=== PATIENT | female | born 1985 | race American Indian/Alaskan Native ===

== ENCOUNTER 2018-09-25 19:56 | Emergency (ER) | payer MEDICAID ==
[2018-09-25 20:08] VITALS: BP 139/97
--- NOTE | 2018-09-25 23:03 | Emergency Department Report ---
ED Female HPI - General Chief complaint: Skin/Abscess/Foreign Body Stated complaint: ABCESS BETWEEN LEGS Time Seen by Provider: 09/25/18 22:36 Source: patient Mode of arrival: Ambulatory Limitations: No Limitations - History of Present Illness Initial comments: Pt is a 32 yo female who presents to the ED with c/o a "knot" on the right labia that began two days ago. She denies any drainage or fever. The patient states she has had it once before about 3 years ago and had an I&D at that time. She states she has also had white vaginal discharge that began 3-4 days ago she states she used OTC monistat with a little relief. she has associated frequency. she denies any dysuria. she denies any PMHx. LNMP: september 09. no allergies to meds. - Related Data Previous Rx's Medication Instructions Recorded Last Taken Type Doxycycline Hyclate [Doxycycline 100 mg PO BID 14 Days #28 tab 09/26/18 Unknown Rx Hyclate TAB] Allergies Allergy/AdvReac Type Severity Reaction Status Date / Time No Known Allergies Allergy Verified 09/25/18 20:34 ED Review of Systems ROS: Stated complaint: ABCESS BETWEEN LEGS Other details as noted in HPI Comment: All other systems reviewed and negative ED Past Medical Hx - Past Medical History Previous Medical History?: No - Surgical History Past Surgical History?: No - Social History Smoking Status: Never Smoker Substance Use Type: None - Medications Home Medications: Home Medications Medication Instructions Recorded Confirmed Last Taken Type Doxycycline Hyclate [Doxycycline 100 mg PO BID 14 Days #28 tab 09/26/18 Unknown Rx Hyclate TAB] ED Physical Exam - General Limitations: No Limitations General appearance: alert, in no apparent distress - Head Head exam: Present: atraumatic, normocephalic - Eye Eye exam: Present: normal appearance - ENT ENT exam: Present: mucous membranes moist - Respiratory Respiratory exam: Present: normal lung sounds bilaterally. Absent: respiratory distress, wheezes, rales, rhonchi, stridor, chest wall tenderness, accessory muscle use, decreased breath sounds, prolonged expiratory - Cardiovascular Cardiovascular Exam: Present: regular rate, normal rhythm, normal heart sounds. Absent: systolic murmur, diastolic murmur, rubs, gallop - GI/Abdominal GI/Abdominal exam: Present: soft, normal bowel sounds. Absent: distended, tenderness, guarding, rebound, rigid - External exam: Present: swelling (small 1 cm area of induration to the right bartholins gland, no fluctuance, no drainage) Speculum exam: Present: vaginal discharge (small amount white discharge), cervical discharge (small amount white discharge). Absent: vaginal bleeding, foreign body, tissue, laceration Bi-manual exam: Present: cervical motion tendernes (moderate). Absent: adnexal tenderness, adnexal mass, uterine enlargement, uterine tenderness - Back Exam Back exam: Absent: CVA tenderness (R), CVA tenderness (L) - Neurological Exam Neurological exam: Present: alert, oriented X3 - Psychiatric Psychiatric exam: Present: normal affect, normal mood - Skin Skin exam: Present: warm, dry, intact ED Course Vital Signs 09/25/18 09/25/18 20:01 20:35 Temperature 98.5 F 98.5 F Pulse Rate 100 H 104 H Respiratory 18 16 Rate Blood Pressure 139/97 Blood Pressure 139/97 [Left] O2 Sat by Pulse 98 98 Oximetry ED Medical Decision Making - Medical Decision Making pt has a 1 cm area of induration to the right labia consistent with a bartholins cyst, not fluctuant at this time, is still very hard, no I&D at this time, discussed with pt that she would need to see an [facility] [facility]PERATIONS MANAGER in the next 2-3 days for reevaluation. pt has discharge and moderate CMT on exam, no N/V, vitals are normal. pt swabbed for G/C and given azithromycin and ceftriaxone. wet prep shows evidence of BV and trichomonas. pt given flagyl, discussed to not drink ETOH while taking and take as prescribed. pt given tx for PID with azithromycin, ceftriaxone and 14 day course of flagyl. have partner tested and treated as well. if concerned for any other STDs would need to be seen by health department, [facility]ATIONS MANAGER or primary care doctor. return to the emergency room for any new or worsening symptoms. Critical care attestation.: If time is entered above; I have spent that time in minutes in the direct care of this critically ill patient, excluding procedure time. ED Disposition Clinical Impression: Bartholin's cyst, Vaginal discharge, Bacterial vaginosis, Trichomonas infection, PID (acute pelvic inflammatory disease), Screen for STD (sexually transmitted disease) Disposition: TO HOME OR SELFCARE Is pt being admited?: No Does the pt Need Aspirin: No Condition: Stable Instructions: Pelvic Inflammatory Disease (ED), Bacterial Vaginosis (ED), Trichomoniasis (ED), Bartholin Cyst (ED) Additional Instructions: Please take all medication as prescribed. do not drink ETOH while taking. follow up with an stain maker and primary care doctor in the next 2-3 days. return to the emergency room immediately for any new or worsening symptoms as discussed. abstain from sexual intercourse until completion of medication. have partner tested and treated. if concerned for any other STDs please be seen at [facility] [facility] [facility]ATIONS [facility]NAGER, health department, or primary care. Prescriptions: Doxycycline Hyclate [Doxycycline Hyclate TAB] 100 mg PO BID 14 Days #28 tab Referrals: PRIMARY CAREMD [Primary Care Provider] - 2-3 Days [facility] [Provider Group] - 2-3 Days RYAN HORTA MD [Staff Physician] - 2-3 Days Forms: STI Treatment and Prevention Time of Disposition: 00:59 Print Language: DOMINICAN
[2018-09-25] MEDS ORDERED: XYLOCAINE 1% MPF 5 mL INFILTRATI ONE (23:31)
[2018-09-25] MEDS ORDERED: ZITHROMAX PO ONE (23:31)
[2018-09-25] MEDS ORDERED: ROCEPHIN IM ONE (23:31)
[2018-09-25 23:57] LABS: Bacteria,Urine 1+ /HPF (Negative); Bilirubin,Urine NEG (Negative); Blood,Urine SM (Negative); Color,Urine Yellow (Yellow); Mucus,Urine FEW /HPF; Protein,Urine <15 mg/dL mg/dL (Negative)
[2018-09-26 00:01] LABS: HCG Qualitative,Urine Negative (Negative)
== END 2018-09-26 01:14 | disposition home or self-care (01) ==
LOC: ED 19:56
DX: N73.9 Female pelvic inflammatory disease, unspecified (principal); A59.01 Trichomonal vulvovaginitis; N75.0 Cyst of Bartholin's gland; N76.0 Acute vaginitis; B96.89 Other specified bacterial agents as the cause of diseases classified elsewhere; Z11.3 Encounter for screening for infections with a predominantly sexual mode of transmission
CPT/HCPCS: 81001; 81025; 87210; 87591; 96372; 99284; J0696

== ENCOUNTER 2018-11-30 13:45 | Emergency (ER) | payer MEDICAID ==
--- NOTE | 2018-11-30 13:59 | Event Note ---
ED Screening Note Date of service: 11/30/18 Time: 13:55 ED Screening Note: This is a 33 y.o. F. that presents to the ER with sharp flank pain x 2-3 days. Denies dysuria, hematuria, vaginal discharge, urinary frequency, urgency. Patient states she went to her PCP at [facility] and given antibiotics and other meds for presumed kidney stones. This initial assessment/diagnostic orders/clinical plan/treatment(s) is/are subject to change based on patients health status, clinical progression and re- assessment by fellow clinical providers in the ED. Further treatment and workup at subsequent clinical providers discretion. Patient/guardian urged not to elope from the ED as their condition may be serious if not clinically assessed and managed. Initial orders include: Labs and CT of abdomen and pelvis.
[2018-11-30 14:36] LABS: Basophils % (Auto) 0.4 % (0.0-1.8); Eosinophils # (Auto) 0.1 K/mm3 (0.0-0.4); Eosinophils % (Auto) 0.9 % (0.0-4.3); Hematocrit 36.6 % (30.3-42.9); Hemoglobin 11.6 gm/dl (10.1-14.3); Lymphocytes # (Auto) 2.6 K/mm3 (1.2-5.4); Lymphocytes % (Auto) 42.1 % (13.4-35.0); Mean Corpuscular HGB Conc 32 % (30-34); Mean Corpuscular Volume 71 fl (79-97); Monocytes # (Auto) 0.3 K/mm3 (0.0-0.8); Monocytes % (Auto) 5.4 % (0.0-7.3); Platelet Count 247 K/mm3 (140-440); Red Blood Count 5.16 M/mm3 (3.65-5.03); Red Cell Distribution Width 15.8 % (13.2-15.2)
[2018-11-30 14:59] LABS: Alanine Aminotransferase 12 units/L (7-56); Albumin 3.8 g/dL (3.9-5); BUN/Creatinine Ratio 14; Blood Urea Nitrogen 10 mg/dL (7-17); Calcium 8.8 mg/dL (8.4-10.2); Hemolysis Index 6
--- NOTE | 2018-11-30 15:02 | Emergency Department Report ---
HPI - General Chief Complaint: Urogenital-Female Time Seen by Provider: 11/30/18 13:55 - HPI HPI: 33-year-old female presents to the emergency department with complaint of some left lower quadrant abdominal pain and some left lower to mid back pain for the past 2 days. Currently she does not have any abdominal or pelvic pain but she does continue to have the back pain. It worsens when she is laying on her left side. She denies any dysuria, vaginal bleeding or discharge, fever, nausea, vomiting. She tried some ibuprofen for her symptoms without much relief. The patient says that she may have some history of kidney stones but this is only because she was found to have some blood in her urine at a recent visit to [facility] and was told that it could be due to kidney stones. She has never had any imaging that confirmed kidney stones. ED Past Medical Hx - Past Medical History Previous Medical History?: Yes Additional medical history: kidney stones - Surgical History Past Surgical History?: No Additional Surgical History: x 2 - Social History Smoking Status: Never Smoker Substance Use Type: None - Medications Home Medications: Home Medications Medication Instructions Recorded Confirmed Last Taken Type Doxycycline Hyclate [Doxycycline 100 mg PO BID 14 Days #28 tab 09/26/18 Unknown Rx Hyclate TAB] Sulfamethoxazole/Trimethoprim 1 each PO BID #14 tablet 09/26/18 Unknown Rx [Bactrim DS TAB] metroNIDAZOLE [Flagyl] 500 mg PO Q12HR #14 tab 09/26/18 Unknown Rx HYDROcodone/APAP 5-325 [Chaseley 1 each PO Q6HR PRN #10 tablet 11/30/18 Unknown Rx 5/325] ED Review of Systems ROS: Stated complaint: STOMACH/LOWER BACK PAIN Other details as noted in HPI Comment: All other systems reviewed and negative Constitutional: denies: chills, fever Eyes: denies: eye pain, vision change ENT: denies: ear pain, throat pain Respiratory: denies: cough, shortness of breath Cardiovascular: denies: chest pain, palpitations Gastrointestinal: abdominal pain. denies: vomiting Genitourinary: denies: dysuria, discharge Musculoskeletal: back pain. denies: arthralgia Skin: denies: rash, lesions Neurological: denies: headache, weakness Physical Exam - Physical Exam Vital Signs: Vital Signs 11/30/18 13:54 Temperature 98.7 F Pulse Rate 110 H Respiratory 18 Rate Blood Pressure 167/112 [Right] O2 Sat by Pulse 100 Oximetry Physical Exam: GENERAL: The patient is well-developed well-nourished. HENT: Normocephalic. Atraumatic. Patient has moist mucous membranes. EYES: Extraocular motions are intact. NECK: Supple. Trachea is midline. CHEST/LUNGS: Clear to auscultation. There is no respiratory distress noted. HEART/CARDIOVASCULAR: Regular. There is no tachycardia. There is no murmur. ABDOMEN: Abdomen is soft, nontender. Patient has normal bowel sounds. There is no abdominal distention. SKIN: Skin is warm and dry. NEURO: The patient is awake, alert, and oriented. The patient is cooperative. The patient has no focal neurologic deficits. The patient has normal speech. MUSCULOSKELETAL: There is no tenderness or deformity. There is no limitation range of motion. There is no evidence of acute injury. BACK: No midline thoracic or lumbar tenderness palpation, step-off or deformity. There is some left mid to lower paraspinal tenderness to palpation. ED Course Vital Signs 11/30/18 13:54 Temperature 98.7 F Pulse Rate 110 H Respiratory 18 Rate Blood Pressure 167/112 [Right] O2 Sat by Pulse 100 Oximetry ED Medical Decision Making - Lab Data Result diagrams: 11/30/18 14:20 11/30/18 14:20 - Radiology Data Radiology results: report reviewed CT of the abdomen and pelvis without contrast INDICATION / CLINICAL INFORMATION: Bilateral flank pain. TECHNIQUE: All CT scans at this location are performed using CT dose reduction for ALARA by means of automated exposure control. COMPARISON: None available. FINDINGS: ABDOMEN: There is a 1 to 2 mm nonobstructive calculus in the lower pole of the right kidney. The left kidney is normal. I see no evidence of hydronephrosis, perinephric soft tissue stranding or re nal mass. The liver, spleen, gallbladder, bile ducts, pancreas, adrenal glands and bowel demonstrate no significant abnormality. A few small lymph nodes in the right lower quadrant mesentery are likely reactive. No bowel wall thickening or other abnormality is seen. The lung bases are clear. PELVIS: The distal ureters and urinary bladder are normal. The left ovary is slightly larger than the right and probably contains a small cyst. There is a minimal amount of free fluid in the cul-de-sac. A normal appendix is present. There are are a few left colonic diverticula without evidence of diverticulitis. IMPRESSION: 1. Tiny nonobstructive right renal calculus. 2. Small left ovarian cyst and mild free fluid in the cul-de-sac are physiologic findings. 3. Mild diverticulosis without CT evidence of diverticulitis. - Medical Decision Making Patient presents with a few days of some intermittent left lower quadrant abdominal pain and some mid to lower left back pain. Patient's labs were unremarkable. CT shows tiny nonobstructive right renal calculus, small left ovarian cyst with mild free fluid that appears physiologic, and mild diverticulosis without diverticulitis. It is possible that the ovarian cyst is the cause of her symptoms. It is also possible that the patient had a kidney stone that passed undetected. I discussed the incidental finding of diverticulosis without diverticulitis with the patient and she was given information about a diverticulosis diet. The patient has no current abdominal pain. Her back pain is now intermittent. Her vital signs are stable throughout her ED course. She appears safe for discharge home at this time. She is instructed to follow up with primary care and return to the ER with any worsening of her symptoms or any acute distress. - Differential Diagnosis nephrolithiasis, pyelonephritis, UTI, colitis, diverticulitis Critical Care Time: No Critical care attestation.: If time is entered above; I have spent that time in minutes in the direct care of this critically ill patient, excluding procedure time. ED Disposition Clinical Impression: Intermittent abdominal pain, Diverticulosis Back pain Qualifiers: Back pain location: back pain in unspecified location Chronicity: unspecified Back pain laterality: left Qualified Code(s): M54.9 - Dorsalgia, unspecified Ovarian cyst Qualifiers: Laterality: left Qualified Code(s): N83.202 - Unspecified ovarian cyst, left side Disposition: DC-01 TO HOME OR SELFCARE Is pt being admited?: No Condition: Stable Instructions: Ovarian Cyst (ED), Diverticulosis (ED), Diverticulitis Diet (ED), Back Pain (ED) Additional Instructions: Please follow-up with your primary care physician in the next few days. Return to the emergency Department with any worsening of your symptoms or any acute distress. You have been prescribed a medication that is sedating and therefore should not be taken prior to driving, working, and responsible for children and in no way should be mixed with alcohol of any quantity. Prescriptions: HYDROcodone/APAP 5-325 [Chaseley 5/325] 1 each PO Q6HR PRN #10 tablet PRN Reason: Pain Referrals: [facility] [Outside] - 2-3 Days Forms: Work/School Release Form(ED) Time of Disposition: 16:59
[2018-11-30 16:21] LABS: Bilirubin,Urine NEG (Negative); Blood,Urine NEG (Negative); Color,Urine Yellow (Yellow); Mucus,Urine 1+ /HPF; Protein,Urine <15 mg/dL mg/dL (Negative); Urobilinogen,Urine < 2.0 mg/dL (<2.0)
[2018-11-30 16:34] LABS: WBC,Urine < 1.0 /HPF (0.0-6.0)
--- NOTE | 2018-11-30 16:43 | Cat Scan Report ---
CT of the abdomen and pelvis without contrast INDICATION / CLINICAL INFORMATION: Bilateral flank pain. TECHNIQUE: All CT scans at this location are performed using CT dose reduction for ALARA by means of automated e xposure control. COMPARISON: None available. FINDINGS: ABDOMEN: There is a 1 to 2 mm nonobstructive calculus in the lower pole of the right kidney. The left kidney is normal. I see no evidence of hydronephrosis, perinephric soft tissue stranding or renal ma ss. The liver, spleen, gallbladder, bile ducts, pancreas, adrenal glands and bowel demonstrate no signifi cant abnormality. A few small lymph nodes in the right lower quadrant mesentery are likely reactive. No bowel wall thickening or other abnormality is seen. The lung bases are clear. PELVIS: The distal ureters and urinary bladder are normal. The left ovary is slightly larger than the right and probably contains a small cyst. There is a minimal amount of free fluid in the cul-de-sac. A normal appendix is present. There are are a few left colonic diverticula without evidence of diver ticulitis. IMPRESSION: 1. Tiny nonobstructive right renal calculus. 2. Small left ovarian cyst and mild free fluid in the cul-de-sac are physiologic findings. 3. Mild diverticulosis without CT evidence of diverticulitis. Signer Name: Angelo Angel MD Signed: 11/30/2018 4:39 PM Workstation Name: [id number]
[2018-11-30 17:30] VITALS: BP 137/89
== END 2018-11-30 17:23 | disposition home or self-care (01) ==
LOC: ED 13:45
DX: K57.90 Diverticulosis of intestine, part unspecified, without perforation or abscess without bleeding (principal); N83.202 Unspecified ovarian cyst, left side; Z79.899 Other long term (current) drug therapy
CPT/HCPCS: 36415; 74176; 80053; 81001; 84703; 85025; 99284

== ENCOUNTER 2020-06-28 13:42 | Emergency (ER) | payer MEDICAID ==
--- NOTE | 2020-06-28 14:58 | Vascular Lab Report ---
DUPLEX DOPPLER LOWER EXTREMITY VEINS, RIGHT INDICATION: right leg pain. TECHNIQUE: Duplex doppler imaging was performed through the veins of the right lower extremity using venous compression and other maneuvers. COMPARISON: No relevant prior imaging study available. FINDINGS: Right Common femoral vein: Negative. Right Superficial femoral vein: Negative. Right Popliteal vein: Negative. Right Calf veins: Negative. Additional findings: None. IMPRESSION: No sonographic evidence for DVT in the right lower extremity. Signer Name: Ron Morrison Jr, MD Signed: 06/28/2020 2:53 PM Workstation Name: [id number]
[2020-06-28 15:35] LABS: Basophils % (Auto) 0.2 % (0.0-1.8); Eosinophils % (Auto) 0.2 % (0.0-4.3); Hemoglobin 12.2 gm/dl (10.1-14.3); Lymphocytes # (Auto) 2.8 K/mm3 (1.2-5.4); Lymphocytes % (Auto) 40.3 % (13.4-35.0); Mean Corpuscular HGB Conc 31 % (30-34); Mean Corpuscular Volume 73 fl (79-97); Monocytes # (Auto) 0.4 K/mm3 (0.0-0.8); Monocytes % (Auto) 6.3 % (0.0-7.3); Platelet Count 261 K/mm3 (140-440); Red Blood Count 5.35 M/mm3 (3.65-5.03); Red Cell Distribution Width 14.9 % (13.2-15.2)
[2020-06-28 16:02] LABS: Alanine Aminotransferase 11 units/L (7-56); BUN/Creatinine Ratio 11; Blood Urea Nitrogen 9 mg/dL (7-17); Hemolysis Index 4
--- NOTE | 2020-06-28 16:12 | Emergency Department Report ---
ED Extremity Problem HPI - General Chief complaint: Extremity Injury, Lower Stated complaint: RT FOOT RIGHT THIGH PAIN Time Seen by Provider: 06/28/20 13:55 Source: patient Mode of arrival: Ambulatory Limitations: No Limitations - History of Present Illness Initial comments: pt is a 34 yo female who presents to the ED with c/o tingling to the right foot that began a couple of weeks ago. she states she feels the tingling sensation between her big toe and 2nd toe. she denies any fall or injury. she denies any difficulty ambulating. she denies any swelling of the leg. she states she has also had right thigh pain since yesterday described as a "muscle spasm." she states occasionally it will spasm and she has to rub the leg. she states it feels like it is cramping like a charley horse. she denies any fall or injury, no calf pain, no CP, no SOB, no swelling in the leg. PMHx prediabetes. no allergies to meds. [facility] 06/03/2020. - Related Data Previous Rx's Medication Instructions Recorded Last Taken Type Doxycycline Hyclate [Doxycycline 100 mg PO BID 14 Days #28 tab 09/26/18 Unknown Rx Hyclate TAB] Sulfamethoxazole/Trimethoprim 1 each PO BID #14 tablet 09/26/18 Unknown Rx [Bactrim DS TAB] metroNIDAZOLE [Flagyl] 500 mg PO Q12HR #14 tab 09/26/18 Unknown Rx HYDROcodone/APAP 5-325 [[place] 1 each PO Q6HR PRN #10 tablet 11/30/18 Unknown Rx 5/325] Naproxen [EC-Naprosyn] 500 mg PO BID PRN #20 tablet. 06/28/20 Unknown Rx methOCARBAMOL [Robaxin TAB] 500 mg PO BID PRN #20 tab 06/28/20 Unknown Rx Allergies Allergy/AdvReac Type Severity Reaction Status Date / Time No Known Allergies Allergy Verified 06/28/20 13:43 ED Review of Systems ROS: Stated complaint: RT FOOT RIGHT THIGH PAIN Other details as noted in HPI Comment: All other systems reviewed and negative ED Past Medical Hx - Past Medical History Previous Medical History?: No Additional medical history: kidney stones - Surgical History Additional Surgical History: x 2 - Social History Smoking Status: Never Smoker Substance Use Type: None - Medications Home Medications: Home Medications Medication Instructions Recorded Confirmed Last Taken Type Doxycycline Hyclate [Doxycycline 100 mg PO BID 14 Days #28 tab 09/26/18 Unknown Rx Hyclate TAB] Sulfamethoxazole/Trimethoprim 1 each PO BID #14 tablet 09/26/18 Unknown Rx [Bactrim DS TAB] metroNIDAZOLE [Flagyl] 500 mg PO Q12HR #14 tab 09/26/18 Unknown Rx HYDROcodone/APAP 5-325 [[place] 1 each PO Q6HR PRN #10 tablet 11/30/18 Unknown Rx 5/325] Naproxen [EC-Naprosyn] 500 mg PO BID PRN #20 tablet. 06/28/20 Unknown Rx methOCARBAMOL [Robaxin TAB] 500 mg PO BID PRN #20 tab 06/28/20 Unknown Rx ED Physical Exam - General Limitations: No Limitations General appearance: alert, in no apparent distress - Head Head exam: Present: atraumatic, normocephalic - Eye Eye exam: Present: normal appearance - ENT ENT exam: Present: mucous membranes moist - Respiratory Respiratory exam: Present: normal lung sounds bilaterally. Absent: respiratory distress, wheezes, rales, rhonchi, stridor, chest wall tenderness, accessory muscle use, decreased breath sounds, prolonged expiratory - Cardiovascular Cardiovascular Exam: Present: regular rate, normal rhythm, normal heart sounds. Absent: systolic murmur, diastolic murmur, rubs, gallop - Extremities Exam Extremities exam: Present: other (no bony ttp of the RLE, no edema of the RLE, no skin changes, no calf ttp, compartments are soft, FROM of the RLE, sensation is intact, neurovascularly intact, strong distal pulses) - Neurological Exam Neurological exam: Present: alert, oriented X3, CN II-XII intact, normal gait. Absent: motor sensory deficit - Psychiatric Psychiatric exam: Present: normal affect, normal mood - Skin Skin exam: Present: warm, dry, intact ED Course Vital Signs 06/28/20 06/28/20 13:49 16:21 Temperature 98.1 F Pulse Rate 113 H 79 Respiratory 20 20 Rate Blood Pressure 141/95 Blood Pressure 138/91 [Right] O2 Sat by Pulse 98 100 Oximetry ED Medical Decision Making - Lab Data Result diagrams: 06/28/20 15:04 06/28/20 15:04 Lab Results 06/28/20 06/28/20 Range/Units 15:04 15:04 WBC 6.9 (4.5-11.0) K/mm3 RBC 5.35 H (3.65-5.03) M/mm3 Hgb 12.2 (10.1-14.3) gm/dl Hct 39.0 (30.3-42.9) % MCV 73 L (79-97) fl MCH 23 L (28-32) pg MCHC 31 (30-34) % RDW 14.9 (13.2-15.2) % Plt Count 261 (140-440) K/mm3 Lymph % (Auto) 40.3 H (13.4-35.0) % [place] % (Auto) 6.3 (0.0-7.3) % Eos % (Auto) 0.2 (0.0-4.3) % Baso % (Auto) 0.2 (0.0-1.8) % Lymph # (Auto) 2.8 (1.2-5.4) K/mm3 [place] # (Auto) 0.4 (0.0-0.8) K/mm3 Eos # (Auto) 0.0 (0.0-0.4) K/mm3 Baso # (Auto) 0.0 (0.0-0.1) K/mm3 Seg Neutrophils % 53.0 (40.0-70.0) % Seg Neutrophils # 3.6 (1.8-7.7) K/mm3 Sodium 139 (137-145) mmol/L Potassium 4.1 (3.6-5.0) mmol/L Chloride 102.3 (98-107) mmol/L Carbon Dioxide 30 (22-30) mmol/L Anion Gap 11 mmol/L BUN 9 (7-17) mg/dL Creatinine 0.8 (0.6-1.2) mg/dL Estimated GFR > 60 ml/min BUN/Creatinine Ratio 11 % Glucose 77 (65-100) mg/dL Calcium 9.0 (8.4-10.2) mg/dL Magnesium 1.80 (1.7-2.3) mg/dL Total Bilirubin 0.50 (0.1-1.2) mg/dL AST 11 (5-40) units/L ALT 11 (7-56) units/L Alkaline Phosphatase 78 (35-129) units/L Total Creatine Kinase 65 (30-135) units/L Total Protein 7.9 (6.3-8.2) g/dL Albumin 4.0 (3.9-5) g/dL Albumin/Globulin Ratio 1.0 % Vital Signs 06/28/20 06/28/20 13:49 16:21 Temperature 98.1 F Pulse Rate 113 H 79 Respiratory 20 20 Rate Blood Pressure 141/95 Blood Pressure 138/91 [Right] O2 Sat by Pulse 98 100 Oximetry - Radiology Data Radiology results: report reviewed Ordering Physician: RAFFI BOWSER Date of Service: 06/28/20 Procedure(s): VL venous duplex LE RT Accession Number(s): [id number] cc: RAFFI BOWSER DUPLEX DOPPLER LOWER EXTREMITY VEINS, RIGHT INDICATION: right leg pain. TECHNIQUE: Duplex doppler imaging was performed through the veins of the right lower extremity using venous compression and other maneuvers. COMPARISON: No relevant prior imaging study available. FINDINGS: Right Common femoral vein: Negative. Right Superficial femoral vein: Negative. Right Popliteal vein: Negative. Right Calf veins: Negative. Additional findings: None. IMPRESSION: No sonographic evidence for DVT in the right lower extremity. Signer Name: Ron Morrison Jr, MD Signed: 06/28/2020 2:53 PM Workstation Name: [id number] Transcribed By: TTR Dictated By: RON MORRISON JR, MD Electronically Authenticated By: RON MORRISON JR, MD Signed Date/Time: 06/28/201452 DD/ 52 TD/TT: - Medical Decision Making pt is a 34 yo female who presents to the ED with c/o tingling to the right foot that began a couple of weeks ago. she states she feels the tingling sensation between her big toe and 2nd toe. she denies any fall or injury. she denies any difficulty ambulating. she denies any swelling of the leg. she states she has also had right thigh pain since yesterday described as a "muscle spasm." she states occasionally it will spasm and she has to rub the leg. she states it feels like it is cramping like a charley horse. she denies any fall or injury, no calf pain, no CP, no SOB, no swelling in the leg. PMHx prediabetes. no allergies to meds. [facility] 06/03/2020. Initial vitals with tachycardia which improved to normal upon repeat. On exam:no bony ttp of the RLE, no edema of the RLE, no skin changes, no calf ttp, compartments are soft, FROM of the RLE, sensation is intact, neurovascularly intact, strong distal pulses. doppler US RLE: No sonographic evidence for DVT in the right lower extremity. Labs are normal. Symptoms could be related to muscle spasm/cramping. She has no neurological deficits on exam. No signs of acute significant emergent arterial occlusion, she has strong pulses. No signs of infection. Patient given prescription for naproxen and Robaxin. Advised patient please take medication as prescribed as needed. do not drive or operate heavy machinery while taking muscle relaxer robaxin. may use ice for 15 minutes at a time, rest, elevation of the leg, heating pad for 15 minutes at a time, epsom salt bath. follow up with a primary care doctor. return to the emergency room for any new or worsening symptoms. - Differential Diagnosis DVT, muscle strain, muscle cramp/spasm, electrolyte abnormality Critical care attestation.: If time is entered above; I have spent that time in minutes in the direct care of this critically ill patient, excluding procedure time. ED Disposition Clinical Impression: Paresthesia of right foot Leg pain Qualifiers: Laterality: right Qualified Code(s): M79.604 - Pain in right leg Disposition: DC-01 TO HOME OR SELFCARE Is pt being admited?: No Does the pt Need Aspirin: No Condition: Stable Instructions: Muscle Cramps and Spasms, [id number], Paresthesia Additional Instructions: please take medication as prescribed as needed. do not drive or operate heavy machinery while taking muscle relaxer robaxin. may use ice for 15 minutes at a time, rest, elevation of the leg, heating pad for 15 minutes at a time, epsom salt bath. follow up with a primary care doctor. return to the emergency room for any new or worsening symptoms. Prescriptions: Naproxen [EC-Naprosyn] 500 mg PO BID PRN #20 tablet.dr [place] Reason: pain methOCARBAMOL [Robaxin TAB] 500 mg PO BID PRN #20 tab PRN Reason: pain Referrals: PRIMARY CAREMD [Primary Care Provider] - 2-3 Days FADUMO RODRIGUEZ MD [Staff Physician] - 2-[address] [facility] [Provider Group] - 2-3 Days Time of Disposition: 16:12 Print Language: [place]
[2020-06-28 16:41] VITALS: BP 138/91
== END 2020-06-28 16:18 | disposition home or self-care (01) ==
LOC: ED 13:42
DX: R20.2 Paresthesia of skin (principal); M79.604 Pain in right leg; Z98.890 Other specified postprocedural states; Z79.899 Other long term (current) drug therapy
CPT/HCPCS: 36415; 80053; 82550; 83735; 85025

== ENCOUNTER 2020-08-31 21:30 | Emergency (ER) | payer MEDICAID ==
[2020-09-01 00:39] LABS: Bilirubin,Urine NEG (Negative); Blood,Urine NEG (Negative); Color,Urine Yellow (Yellow); Mucus,Urine FEW /HPF; Protein,Urine <15 mg/dL mg/dL (Negative)
--- NOTE | 2020-09-01 00:51 | Emergency Department Report ---
ED General Adult HPI - General Chief complaint: Rectal Pain Stated complaint: /PAIN WITH BOWEL MOVEMENT Time Seen by Provider: 09/01/20 00:17 Source: patient Mode of arrival: Ambulatory Limitations: No Limitations - History of Present Illness Initial comments: Patient is a 34-year-old female presents emergency room with complaints of pain with defecation that began over a week ago. She states that she does not have bowel movements daily. She states she had a bowel movement yesterday which was normal in appearance but was painful to have. She denies any blood or pus in the stool. She denies any swelling in the rectum region. She denies any abdominal pain, she states that she does has pain upon defecation. She denies any nausea or vomiting and she is able to tolerate p.o. intake. She states that she is currently 8 weeks . She states that she went to [facility] last week and had ultrasound performed which she states showed IUP. She states that she saw at [facility]OP[facility] CHEMIST a few days ago and had her confirmed and she discussed these complaints and they advised her that this was likely normal constipation in . She reports that she is planning on terminating the . She denies any vaginal bleeding, urinary symptoms, urinary retention, vaginal discharge, fever. Past medical history of DDD and kidney stones. No allergies to medications. - Related Data Previous Rx's Medication Instructions Recorded Last Taken Type Doxycycline Hyclate [Doxycycline 100 mg PO BID 14 Days #28 tab 09/26/18 Unknown Rx Hyclate TAB] Sulfamethoxazole/Trimethoprim 1 each PO BID #14 tablet 09/26/18 Unknown Rx [Bactrim DS TAB] metroNIDAZOLE [Flagyl] 500 mg PO Q12HR #14 tab 09/26/18 Unknown Rx HYDROcodone/APAP 5-325 [[place] 1 each PO Q6HR PRN #10 tablet 11/30/18 Unknown Rx 5/325] Naproxen [EC-Naprosyn] 500 mg PO BID PRN #20 tablet. 06/28/20 Unknown Rx methOCARBAMOL [Robaxin TAB] 500 mg PO BID PRN #20 tab 06/28/20 Unknown Rx Docusate Sodium [Colace] 100 mg PO BID PRN #20 capsule 09/01/20 Unknown Rx Glycerin Adult 2 gm 2 gm NM ONCE PRN #7 supp.rect 09/01/20 Unknown Rx polyethylene glycoL 3350 [Miralax 7 gm PO QDAY #1 bottle 09/01/20 Unknown Rx 3350] Allergies Allergy/AdvReac Type Severity Reaction Status Date / Time No Known Allergies Allergy Verified 06/28/20 13:43 ED Review of Systems ROS: Stated complaint: /PAIN WITH BOWEL MOVEMENT Other details as noted in HPI Comment: All other systems reviewed and negative ED Past Medical Hx - Past Medical History Previous Medical History?: Yes Additional medical history: kidney stones - Surgical History Past Surgical History?: Yes Additional Surgical History: x 2 - Social History Smoking Status: Never Smoker Substance Use Type: None - Medications Home Medications: Home Medications Medication Instructions Recorded Confirmed Last Taken Type Doxycycline Hyclate [Doxycycline 100 mg PO BID 14 Days #28 tab 09/26/18 Unknown Rx Hyclate TAB] Sulfamethoxazole/Trimethoprim 1 each PO BID #14 tablet 09/26/18 Unknown Rx [Bactrim DS TAB] metroNIDAZOLE [Flagyl] 500 mg PO Q12HR #14 tab 09/26/18 Unknown Rx HYDROcodone/APAP 5-325 [[place] 1 each PO Q6HR PRN #10 tablet 11/30/18 Unknown Rx 5/325] Naproxen [EC-Naprosyn] 500 mg PO BID PRN #20 tablet.dr 06/28/20 Unknown Rx methOCARBAMOL [Robaxin TAB] 500 mg PO BID PRN #20 tab 06/28/20 Unknown Rx Docusate Sodium [Colace] 100 mg PO BID PRN #20 capsule 09/01/20 Unknown Rx Glycerin Adult 2 gm 2 gm NM ONCE PRN #7 supp.rect 09/01/20 Unknown Rx polyethylene glycoL 3350 [Miralax 7 gm PO QDAY #1 bottle 09/01/20 Unknown Rx 3350] ED Physical Exam - General Limitations: No Limitations General appearance: alert, in no apparent distress - Head Head exam: Present: atraumatic, normocephalic - Eye Eye exam: Present: normal appearance - ENT ENT exam: Present: mucous membranes moist - Respiratory Respiratory exam: Present: normal lung sounds bilaterally. Absent: respiratory distress, wheezes, rales, rhonchi, stridor, chest wall tenderness, accessory muscle use, decreased breath sounds, prolonged expiratory - Cardiovascular Cardiovascular Exam: Present: regular rate, normal rhythm, normal heart sounds. Absent: systolic murmur, diastolic murmur, rubs, gallop - GI/Abdominal GI/Abdominal exam: Present: soft, normal bowel sounds. 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, normal inspection, normal rectal tone, no gross blood, empty rectal vault, no signs of melana, no anal fissure, no induration or masses, no erythema, no pus, no external or internal hemorrhoids) - Neurological Exam Neurological exam: Present: alert, oriented X3 - Psychiatric Psychiatric exam: Present: normal affect, normal mood - Skin Skin exam: Present: warm, dry, intact ED Course Vital Signs 08/31/20 09/01/20 23:38 01:07 Temperature 98.4 F 98.2 F Pulse Rate 104 H 88 Respiratory 18 16 Rate Blood Pressure 135/102 Blood Pressure 121/88 [Left] O2 Sat by Pulse 100 99 Oximetry ED Medical Decision Making - Lab Data Lab Results 09/01/20 Range/Units 00:28 Urine Color Yellow (Yellow) Urine Turbidity Clear (Clear) Urine pH 7.0 (5.0-7.0) Ur Specific [place] 1.011 (1.003-1.030) Urine Protein <15 mg/dl (Negative) mg/dL Urine Glucose (UA) Neg (Negative) mg/dL Urine Ketones Neg (Negative) mg/dL Urine Blood Neg (Negative) Urine Nitrite Neg (Negative) Urine Bilirubin Neg (Negative) Urine Urobilinogen 2.0 (<2.0) mg/dL Ur Leukocyte Esterase Tr (Negative) Urine WBC (Auto) 3.0 (0.0-6.0) /HPF Urine RBC (Auto) 1.0 (0.0-6.0) /HPF U Epithel Cells (Auto) 8.0 (0-13.0) /HPF Urine Mucus Few /HPF Vital Signs 08/31/20 09/01/20 23:38 01:07 Temperature 98.4 F 98.2 F Pulse Rate 104 H 88 Respiratory 18 16 Rate Blood Pressure 135/102 Blood Pressure 121/88 [Left] O2 Sat by Pulse 100 99 Oximetry - Medical Decision Making Patient is a 34-year-old female presents emergency room with complaints of pain with defecation that began over a week ago. She states that she does not have bowel movements daily. She states she had a bowel movement yesterday which was normal in appearance but was painful to have. She denies any blood or pus in the stool. She denies any swelling in the rectum region. She denies any abdominal pain, she states that she does has pain upon defecation. She denies any nausea or vomiting and she is able to tolerate p.o. intake. She states that she is currently 8 weeks . She states that she went to [facility] last week and had ultrasound performed which she states showed IUP. She states that she saw at [facility]ELOPMENT CHEMIST a few days ago and had her confirmed and she discussed these complaints and they advised her that this was likely normal constipation in . She reports that she is planning on terminating the . She denies any vaginal bleeding, urinary symptoms, urinary retention, vaginal discharge, fever. Past medical history of DDD and kidney stones. No allergies to medications. Vitals are stable. 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 UA ordered prior to my examination and is within normal limits. Patient given prescription for glycerin suppository, Colace, MiraLAX. Advised patient Please use medication as prescribed. Please only use suppositories if other medications are not helping. Follow-up with your DEVELOPMENT CHEMIST. Follow-up with your primary care doctor. Follow-up with a GI specialist. Increase your water intake. Increase your fiber intake. Return to emergency room for new or worsening symptoms. Critical care attestation.: If time is entered above; I have spent that time in minutes in the direct care of this critically ill patient, excluding procedure time. ED Disposition Clinical Impression: Painful defecation Disposition: DC-01 TO HOME OR SELFCARE Is pt being admited?: No Does the pt Need Aspirin: No Condition: Stable Additional Instructions: Please use medication as prescribed. Please only use suppositories if other medications are not helping. Follow-up with your DEVELOPMENT CHEMIST. Follow-up with your primary care doctor. Follow-up with a GI specialist. Increase your water intake. Increase your fiber intake. Return to emergency room for new or worsening symptoms. Prescriptions: Docusate Sodium [Colace] 100 mg PO BID PRN #20 capsule PRN Reason: constipation Glycerin Adult 2 gm 2 gm NM ONCE PRN #7 supp.rect PRN Reason: constipation polyethylene glycoL 3350 [Miralax 3350] 7 gm PO QDAY #1 bottle Referrals: PRIMARY CARE, [Primary Care Provider] - 3-5 Days [facility] [Provider Group] - 3-5 Days Time of Disposition: 00:50 Print Language: [place]
[2020-09-01 01:08] VITALS: BP 121/88
== END 2020-09-01 01:08 | disposition home or self-care (01) ==
LOC: ED 21:30
DX: O99.611 Diseases of the digestive system complicating pregnancy, first trimester (principal); K62.89 Other specified diseases of anus and rectum; Z3A.08 8 weeks gestation of pregnancy; Z98.890 Other specified postprocedural states; Z79.899 Other long term (current) drug therapy
CPT/HCPCS: 81001; 99283